=== PATIENT | male | born 1985 | race Caucasian/White ===

== ENCOUNTER 2020-02-02 15:26 | Emergency (ER) | payer OTHER, SELFPAY ==
--- NOTE | 2020-02-02 15:37 | ED.GENADULT ---
HPI - General Adult General Chief complaint: Ear Stated complaint: ear pain Time Seen by Provider: 02/02/20 15:37 Source: patient and RN notes reviewed History of Present Illness HPI narrative: Patient is a 34-year-old male who presents the urgent care with complaints of left ear clogged . Patient states been ongoing for approximately 2 days. States that he originally had a as it in the ear and his put vinegar in the ear to help improve. Patient states that since then is felt full and clogged. Denies of any pain in the ear or difficulty hearing. No other upper respiratory complaints. No acute distress noted. Patient aware of the plan of care. Some parts of this dictation were generated by voice recognition software and may contain typographical and/or grammatical inaccuracies. Related Data Home Medications Medication Instructions Recorded Confirmed venlafaxine 150 mg PO DAILY 02/02/20 02/02/20 Allergies Allergy/AdvReac Type Severity Reaction Status Date / Time No Known Allergies Allergy Verified 02/02/20 15:39 Review of Systems Review of Systems: Narrative: CONSTITUTIONAL: Denies fever, chills, or sweats. EYES: Denies visual changes, redness, or discharge. ENT: Reports of left ear clogged CARDIOVASCULAR: Denies chest pain, palpitations, or edema. RESPIRATORY: Denies cough or dyspnea. GASTROINTESTINAL: Denies abdominal pain, nausea, vomiting, or diarrhea. GENITOURINARY: Denies dysuria or hematuria. SKIN: Denies rash or itching. MUSCULOSKELETAL: Denies back pain, joint pain, or myalgia. NEUROLOGIC: Denies headache, numbness, or weakness. All other systems reviewed are negative, except as documented in HPI. PMFSH Comments At the time of my signature, I reviewed and agree with the nursing past medical, surgical, social, and family history. There is no relevant family history pertinent to the patient complaint. Exam Narrative: Exam Narrative: GENERAL: This is a well-nourished, well-developed patient, in no apparent distress. HEAD: normocephalic, atraumatic. EYES: PERRL. Sclera clear/white. Vision is grossly intact. EARS: External ears normal, right auditory canal clear and without drainage, unable to visualize left TM due to thick/white yeastlike impaction. Right TM normal without perforation. Hearing grossly intact. NOSE: External nose normal with no obvious nasal discharge, nares without redness, no rhinorrhea. THROAT: Mucous membranes moist, posterior pharynx clear. NECK: Neck supple SKIN: warm, intact with no suspicious lesions or rash, good texture and turgor. NEURO: awake, alert, and oriented to person, place and time. There were no obvious focal neurologic abnormalities. EXTREMITIES: No clubbing, cyanosis, or edema. Course Vital Signs Vital signs: Vital Signs Temperature 98.2 F 02/02/20 15:38 Pulse Rate 90 02/02/20 15:38 Respiratory Rate 18 02/02/20 15:38 Blood Pressure 123/81 02/02/20 15:38 Pulse Oximetry 100 02/02/20 15:38 Temperature 98.2 F 02/02/20 15:38 Pulse Rate 90 02/02/20 15:38 Respiratory Rate 18 02/02/20 15:38 Blood Pressure 123/81 02/02/20 15:38 Pulse Oximetry 100 02/02/20 15:38 Reviewed Medical Decision Making MDM Narrative Medical decision making narrative: Advised the patient not to put anything in the ears such as vinegar, peroxide, water, Q-tips. Use the prescription drops to the affected ear as directed. May use warm compress nightly for comfort and relief. If you do not have any improvements after 3 to 4 days of the eardrops, or if symptoms persist and are associated with pain, start the amoxicillin and complete the medication as directed. Make sure to eat and drink with the oral medication. Follow-up with your PCP within 2 to 5 days or for worsening symptoms or failure to improve. Differential Diagnosis Differential Diagnosis: Pneumonia, Allergic Rhinitis, Upper respiratory cough syndrome, Pharyngitis, Sinusitis, Bronchitis, otitis med
[2020-02-02 15:38] VITALS: BP 123/81; PULSE 90; RESP 18; TEMP 36.8; O2SAT 100
== END 2020-02-02 15:56 | disposition home or self-care (01) ==
PROVIDERS: Emergency Provider Nurse Practitioner Family; PCP Family Medicine
DX: H60.92 Unspecified otitis externa, left ear (principal); F41.9 Anxiety disorder, unspecified
CPT/HCPCS: 99213; G0463

== ENCOUNTER 2022-06-04 08:40 | Emergency (ER) | payer OTHER, SELFPAY ==
[2022-06-04 08:54] VITALS: BP 155/77; PULSE 91; RESP 12; TEMP 36.4; O2SAT 99
--- NOTE | 2022-06-04 09:01 | ED.WOUNDLAC ---
HPI - Wound/Laceration General Chief Complaint: Skin/Abscess/Foreign Body Stated Complaint: knot on chest Time Seen by Provider: 06/04/22 08:42 Source: patient Mode of arrival: ambulatory Limitations: no limitations History of Present Illness HPI narrative: Patient is a 36-year-old male that presents with left breast wound below nipple that this started 3 days ago. States it is hard for him to see it so his has been monitoring it and said it is getting larger. States they tried to drain it last night thinking it was ingrown hair but nothing came out. Reports that is warm and tender to touch. Has not tried any treatments or topical creams on wound. Related Data Home Medications Medication Instructions Recorded Confirmed venlafaxine 150 mg 150 mg PO DAILY 02/02/20 06/04/22 capsule,extended release 24 hr Allergies Allergy/AdvReac Type Severity Reaction Status Date / Time No Known Allergies Allergy Verified 06/04/22 09:00 Review of Systems Review of Systems: All systems reviewed & are unremarkable except as noted in HPI and below Constitutional: Constitutional: Denies body ache(s), Denies fever(s), Denies headache(s), Denies malaise and Denies weakness Eyes: Eyes: Denies loss of vision ENT: Denies otalgia, Denies headache(s), Denies nasal discharge, Denies sinus pain and Denies sore throat Cardiovascular: Cardiovascular: Denies chest pain, Denies irregular heart rhythm and Denies dyspnea Respiratory: Respiratory: Denies dyspnea Gastrointestinal: Gastrointestinal: Denies abdominal pain, Denies melena, Denies hematochezia, Denies diarrhea, Denies nausea and Denies vomiting Musculoskeletal: Musculoskeletal: Denies back pain, Denies myalgias and Denies arthralgias Integumentary/Breasts: Skin/Breast: Reports breast swelling, Reports breast pain, Denies pruritus, Reports lesions, Reports erythema and Denies rash Neurologic: Denies headache(s), Denies loss of vision and Denies weakness Psychiatric: Psychiatric: Reports no additional psychiatric complaints PMFSH Social History Social History Smoking status: Never smoker Comments At time of signature, agree with nursing past medical, surgical, social and family history. There is no relevant family history pertinent to the presenting complaint. Exam Const: General: cooperative, healthy appearing, comfortable, no acute distress and well nourished Nutritional Appearance: well nourished Orientation/consciousness: patient oriented x3 Limitations: no limitations HENMT: Head: normal to inspection, normocephalic and atraumatic Ears: external ears normal Face/Nose/Sinus: Normal external nose present, normal facial exam and face symmetric Face and sinus: normal facial exam and face symmetric Mouth: Yes lip normal Eyes: General: appearance normal, both eyes and all related structures Alignment and Position: alignment normal and position normal Periorbital: periorbital findings normal Eyelids: eyelids normal Pupils: Equal, round and reactive pupils present EOM: EOMs intact bilaterally Neck: Neck: normal visual inspection and full ROM Chest: Chest palpation & inspection: normal inspection of the chest Resp: Effort & Inspection: normal respiratory effort and able to speak in complete sentences Auscultation: clear to auscultation bilaterally Cardio: Rate: regular rate Rhythm: regular rhythm Heart sounds: S1 normal heart sound present and S2 normal heart sound present GI: Inspection: normal to inspection Skin: General skin exam: normal color Lesions: lesion noted left breast size (6 cmx4 cm), borders well-defined, color red, consistency soft (boarders), firm (center [id number]) and fixed, morphology round, surface indurated, smooth and warm and tender Neuro: General: patient oriented x3 and moves all extremities Cranial nerves: Yes Equal, round and reactive pupils present Speech: normal speech Gait exam (Neuro): Normal gait present Extrem: General
== END 2022-06-04 09:09 | disposition home or self-care (01) ==
PROVIDERS: Emergency Provider Nurse Practitioner Family; PCP Emergency Medicine
DX: N61.0 Mastitis without abscess (principal); F41.9 Anxiety disorder, unspecified
CPT/HCPCS: 99213; G0463